=== PATIENT | male | born 1945 | race Caucasian/White ===

== ENCOUNTER → 2016-11-24 | Outpatient (CLI) | payer MEDICARE | LOC: RT 08:16 | PROVIDERS: ATTEND Family Medicine | DX: I49.8 Other specified cardiac arrhythmias (principal) | CPT/HCPCS: 93005 ==

== ENCOUNTER → 2016-11-27 | Outpatient (CLI) | payer MEDICARE ==
[2016-11-27 07:58] LABS: BASOPHILS % (AUTO) 0 % (0-2); EOSINOPHILS # (AUTO) 0.1 10^3uL; EOSINOPHILS % (AUTO) 1 % (0-4); LYMPHOCYTES # (AUTO) 2.6 X10^3; MEAN CORPUSCULAR HEMOGLOBIN 29.1 PG (26.0-34.0); MEAN CORPUSCULAR HGB CONC 34.4 g/dL (31.0-37.0); MEAN CORPUSCULAR VOLUME 85 FL (80-100); MEAN PLATELET VOLUME 8.8 FL (6.0-9.5); MONOCYTES % (AUTO) 12 % (3-11); NEUTROPHILS % (AUTO) 57 % (51-67); PLATELET COUNT 341 10^3uL (150-450); WHITE BLOOD COUNT 8.77 10^3uL (4.0-11.0)
[2016-11-27 08:18] LABS: BILIRUBIN,URINE Negative (Negative); CLARITY,URINE Clear; GLUCOSE, URINE (UA) Negative (Negative); LEUKOCYTE ESTERASE ,URINE Negative (Negative); UROBILINOGEN,URINE 0.2 mg/dL (0.2-1.0)
[2016-11-27 08:20] LABS: COLOR,URINE Dark Yellow
[2016-11-27 08:28] LABS: ALBUMIN 3.4 g/dL (3.4-5.0); ANION GAP 11.4 MEQ/L (3-15); CALCULATED IONIZED CALCIUM 4.4 mg/dL (3.8-4.6); MAGNESIUM* 2.3 mg/dL (1.6-2.3); TOTAL PROTEIN 5.7 g/dL (6.4-8.5)
== END ==
LOC: LAB 07:43
PROVIDERS: ATTEND Family Medicine
DX: R79.89 Other specified abnormal findings of blood chemistry (principal); E78.2 Mixed hyperlipidemia; D50.8 Other iron deficiency anemias; N39.0 Urinary tract infection, site not specified; E13.65 Other specified diabetes mellitus with hyperglycemia; E83.42 Hypomagnesemia; E03.4 Atrophy of thyroid (acquired)
CPT/HCPCS: 36415; 80053; 80061; 81003; 83036; 83735; 84436; 84443; 85025

== ENCOUNTER 2016-12-01 00:12 | Emergency (ER) | payer MEDICARE ==
[~2016-12-01] VITALS: Ht 175.3 cm; Wt 79.0 kg
[2016-12-01] MEDS ORDERED: SODIUM CHLORIDE FLUSH 10 ML SYR IV PRN (00:30)
[2016-12-01] MEDS ORDERED: ONDANSETRON 2 MG/ML (Z0FRAN) 2 ML VIAL IV ONE (00:30)
[2016-12-01] MEDS ORDERED: SODIUM CHLORIDE FLUSH 3 ML SYR IV PRN (00:30)
[2016-12-01 00:57] LABS: BASOPHILS % (AUTO) 0 % (0-2); EOSINOPHILS # (AUTO) 0.1 10^3uL; EOSINOPHILS % (AUTO) 1 % (0-4); LYMPHOCYTES # (AUTO) 1.5 X10^3; MEAN CORPUSCULAR HGB CONC 34.4 g/dL (31.0-37.0); MEAN CORPUSCULAR VOLUME 84 FL (80-100); MONOCYTES # (AUTO) 1.2 X10^3; MONOCYTES % (AUTO) 13 % (3-11); NEUTROPHILS # (AUTO) 6.1 X10^3; NEUTROPHILS % (AUTO) 68 % (51-67); PLATELET COUNT 293 10^3uL (150-450); WHITE BLOOD COUNT 8.98 10^3uL (4.0-11.0)
[2016-12-01 01:05] LABS: ALBUMIN 3.3 g/dL (3.4-5.0); ANION GAP 11.1 MEQ/L (3-15); CALCULATED IONIZED CALCIUM 4.2 mg/dL (3.8-4.6); TOTAL PROTEIN 5.7 g/dL (6.4-8.5)
[2016-12-01] MEDS ORDERED: ONDANSETRON 2 MG/ML (Z0FRAN) 2 ML VIAL IV PRN (01:25)
[2016-12-01] MEDS ORDERED: HYDROmorphone 1 MG/ML (DILAUDID) SYRINGE IV ONE (01:25)
[2016-12-01 01:29] LABS: INFLUENZA VIRUS TYPE A ANTIBOD Negative (NEGATIVE); INFLUENZA VIRUS TYPE B ANTIBOD Negative (NEGATIVE)
--- NOTE | 2016-12-01 01:37 | NUR ---
PT REQUESTING SOMETHING TO RELIEVE PAIN. MD MADE AWARE AND ORDERED IV ANALGESIC. MEDICATION GIVEN. WILL CONTINUE TO MONITOR PT. AT BEDSIDE.
--- NOTE | 2016-12-01 01:52 | NUR ---
PT UP TO THE BR. PT REPORST PAIN DOWN TO 4/10. IV FLUIDS INFUSED.
[2016-12-01 02:34] VITALS: BP 140/86
== END 2016-12-01 02:30 | disposition home or self-care (01) ==
LOC: ED 00:14
DX: A08.4 Viral intestinal infection, unspecified (principal)
CPT/HCPCS: 36415; 80053; 82150; 83690; 85025; 87502; 96361; 96374; 96375; 99283; J1170; J2405; J7030